=== PATIENT | male | born 1950 | race Caucasian/White ===

== ENCOUNTER 2016-10-07 14:59 | Emergency (ER) | payer OTHER ==
[~2016-10-07] VITALS: Ht 165.1 cm; Wt 68.2 kg
[2016-10-07] MEDS ORDERED: SOD CHLORIDE 0.9% 1,000 ML IV STA (15:09)
[2016-10-07] MEDS ORDERED: HYDROmorphONE 1 MG/ML SYG IV STA (15:09)
[2016-10-07] MEDS ORDERED: ONDANSETRON 4 MG INJ IV STA (15:09)
[2016-10-07 15:42] LABS: ADD UMIC YES; URINE BILIRUBIN (Dip) NEGATIVE (NEGATIVE); URINE BLOOD (Dip) 3+ (NEGATIVE); URINE COLOR LT. YELLOW (YELLOW); URINE GLUCOSE (Dip) NEGATIVE (NEGATIVE); URINE KETONES (Dip) NEGATIVE (NEGATIVE); URINE LEUKOCYTE ESTERASE (Dip) NEGATIVE (NEGATIVE); URINE NITRITE (Dip) NEGATIVE (NEGATIVE); URINE TOTAL PROTEIN (Dip) 1+ (NEGATIVE); URINE UROBILINOGEN (Dip) 0.2 E.U./dL (0.1-1.0)
[2016-10-07 15:49] VITALS: Ht 165.1 cm; Wt 68.2 kg
[2016-10-07 15:55] LABS: BACTERIA,URINE FEW
[2016-10-07 15:56] LABS: BASOPHILS % 0.4 % (0.0-2.0); EOSINOPHILS % 0.3 % (0.0-7.0); HEMATOCRIT 43.7 % (42.0-52.0); LYMPHOCYTES # 2.1 10^3/ul (0.8-2.9); LYMPHOCYTES % 21.6 % (15.0-51.0); MEAN CORPUSCULAR HEMOGLOBIN 31.8 pg (29.0-33.0); MEAN CORPUSCULAR HGB CONC 34.4 g/dl (32.0-37.0); MEAN CORPUSCULAR VOLUME 92.3 fl (82.0-101.0); MONOCYTE # 0.6 10^3/ul (0.3-0.9); MONOCYTES % 6.2 % (0.0-11.0); NEUTROPHIL # 6.8 10^3/ul (1.6-7.5); NEUTROPHILS % 71.5 % (39.0-77.0); PLATELET COUNT 349 10^3/UL (140-440); RED BLOOD COUNT 4.73 10^6/ul (4.70-6.10); RED CELL DISTRIBUTION WIDTH 13.2 % (11.5-14.5); UNCORRECTED WBC 9.5 10^3/ul (4.8-10.8); WHITE BLOOD COUNT 9.5 10^3/ul (4.8-10.8)
[2016-10-07 16:02] LABS: ALBUMIN 4.4 g/dl (3.3-4.9); CHLORIDE 100 mmol/L (97-110)
[2016-10-07 16:03] LABS: POTASSIUM 4.5 mmol/L (3.5-5.1); SODIUM 142 mmol/L (135-144)
[2016-10-07 16:04] LABS: INR 0.92; PARTIAL THROMBOPLASTIN TIME 28.8 Sec (25.0-35.0); PROTIME 12.4 Sec (12.2-14.2)
[2016-10-07 16:05] LABS: ALBUMIN/GLOBULIN RATIO 1.18; ALKALINE PHOSPHATASE 77 IU/L (42-121); ANION GAP 18 (8-16); ASPARTATE AMINO TRANSFERASE 51 IU/L (15-46); BILIRUBIN,INDIRECT 0.1 mg/dl (0-1.1); BILIRUBIN,TOTAL 0.1 mg/dl (0.2-1.3); BLOOD UREA NITROGEN 15 mg/dl (7-20); CARBON DIOXIDE 29 mmol/L (21-31); CREATININE 0.87 mg/dl (0.61-1.24); TOTAL PROTEIN 8.1 g/dl (6.1-8.1)
[2016-10-07 16:06] LABS: ALANINE AMINOTRANSFERASE 54 IU/L (13-69); CALCIUM 9.5 mg/dl (8.4-10.2); GLUCOSE 122 mg/dl (70-220)
[2016-10-07 16:11] LABS: CONDITION 1
[2016-10-07 16:17] LABS: TROPONIN-I < 0.012 ng/ml (0.00-0.12)
[2016-10-07] MEDS ORDERED: DONE5TAB7 PO (16:24)
[2016-10-07] MEDS ORDERED: DIVA-16 PO (16:25)
[2016-10-07] MEDS ORDERED: CARB200T43 PO (16:26)
[2016-10-07] MEDS ORDERED: LEVE500T8 PO (16:27)
[2016-10-07] MEDS ORDERED: DULO30CA47 PO (16:27)
[2016-10-07] MEDS ORDERED: LORAZEPAM 2 MG INJ IV ONE (17:00)
--- NOTE | 2016-10-07 17:54 | RADRPT ---
PROCEDURE: XR Chest. CLINICAL INDICATION: Abdominal pain. TECHNIQUE: Single frontal view. COMPARISON: None. FINDINGS: There is mild atelectasis at the lung bases. The lungs are otherwise clear. The heart size is normal. There is no pleural effusion. There is no pneumothorax. IMPRESSION: 1. Mild atelectasis at the lung bases. 2. Otherwise normal chest x-ray. RPTAT: QQ .Keo Garcia MD, MD Date Time Electronically viewed and signed by .Keo Garcia MD, MD on 10/07/2016 17:54 .R/
--- NOTE | 2016-10-07 18:11 | RADRPT ---
PROCEDURE: CT Brain without contrast. CLINICAL INDICATION: Fall. Abdominal pain. TECHNIQUE: A multiplanar CT of the brain was performed on a CT scanner utilizing axial imaging fro m the skull base through the vertex without IV contrast. The CTDIvol is 45.01 mGy and the DLP is 81 0.25 mGycm. One or more of the following dose reduction techniques were utilized: Automated exposu re control, adjustment of the mA and/or kV according to patient size, use of iterative reconstructio n technique. COMPARISON: None FINDINGS: Evaluation is somewhat limited due to patient motion and image degradation artifact. No evidence of intracranial hemorrhage or abnormal extra-axial fluid collection. Chronic microvascular ischemic changes in the deep white matter with mild prominence of the ventricl es and subarachnoid spaces compatible with age-related atrophy. Physiologic right basal ganglia elías cifications. The posterior fossa contents, brainstem, craniocervical junction, orbits, pituitary axis, paranasal sinuses, mastoid air cells, and calvarium are unremarkable. Postsurgical changes of the globes bilat erally. IMPRESSION: 1. No intracranial hemorrhage or acute intracranial. 2. Early ischemic injury may be occult to CT imaging and diffusion weighted MRI may be considered as clinically warranted. RPTAT:AAJJ Physician Rachel Date Time Electronically viewed and signed by Physician Rachel on 10/07/2016 18:10 ELAINA/
--- NOTE | 2016-10-07 18:55 | RADRPT ---
PROCEDURE: CT of the abdomen and pelvis without contrast CLINICAL INDICATION: Abdominal Pain. TECHNIQUE: Spiral CT images through the abdomen and pelvis without the use of contrast. The admin istered radiation dose is CTDI 7.63 and DLP 440.06. One or more of the following dose reduction etta hniques were used: automated exposure control, adjustment of the mA and/or kV according to patient s ize, or use of iterative reconstruction technique. COMPARISON: None FINDINGS: Lack of oral and intravenous contrast somewhat limits evaluation. Slight dependent atelectasis of the lung bases is seen. No pleural effusion is seen. There is mild cardiomegaly. Coronary artery calcification is seen. The liver, spleen, adrenals, kidneys, and pancreas are unremarkable in appearance. Small probable r ight renal cortical cyst is seen.. There is a right inguinal hernia containing fat and the inferior aspect of the cecum. There is no definite associated bowel obstruction or stranding to suggest isc hemia. Calcifications of the prostate are seen. Small urachal remnant is seen at the urinary bladde r is otherwise unremarkable. The appendix is not identified. No adenopathy or ascites is seen. Th ere is mild degenerative change of the spine. IMPRESSION: Right inguinal hernia containing fat of the cecum without definite evidence of associated bowel obst ruction.. RPTAT: HLBE Physician Mg Date Time Electronically viewed and signed by Physician Mg on 10/07/2016 18:55 LE/
[2016-10-07 19:07] VITALS: BP 152/88; PULSE 88; RESP 18; TEMP 98
[2016-10-07] MEDS ORDERED: HYDR-902 PO (19:14)
--- NOTE | 2016-10-07 19:36 | ERD ---
ER Documentation Chief Complaint Date/Time DATE: 10/07/16 TIME: 19:35 Chief Complaint fall, r hip and shoulder HPI Patient is a 66-year-old male with seizures who presents with a fall. The patient was brought in by ambulance. He had right-sided flank pain and headache after fall. He says that he passed out. He had no pain prior to the fall. He has no fevers, no nausea, vomiting, or diarrhea. He does not know the name of his primary doctor. ROS All systems reviewed and are negative except as per history of present illness. Medications Home Meds Active Scripts Hydrocodone/Acetaminophen (Byers 10-325 Tablet) 1 Each Tablet, 1 TAB PO Q6H Y for PAIN, #7 TAB Prov:INGRID CHAPA MD 10/07/16 Reported Medications Duloxetine Hcl* (Duloxetine Hcl*) 30 Mg Capsule.dr, 30 MG PO DAILY, #30 CAP 10/07/16 Levetiracetam* (Levetiracetam*) 500 Mg Tablet, 500 MG PO BID, TAB 10/07/16 Carbamazepine* (Carbamazepine* XR) 200 Mg Tab.er.12h, 200 MG PO BID, #60 TAB.SA 10/07/16 Divalproex Sodium* (Divalproex Sodium*) 500 Mg Tablet.dr, 500 MG PO Q8, #120 TAB 10/07/16 Donepezil* (Donepezil*) 5 Mg Tablet, 5 MG PO DAILY, #30 TAB 10/07/16 Allergies Allergies: Coded Allergies: No Known Allergy (Unverified , 10/07/16) PMhx/Soc History of Surgery: No Anesthesia Reaction: No Hx Neurological Disorder: Yes (seizures) Hx Respiratory Disorders: No Hx Cardiac Disorders: No Hx Psychiatric Problems: No Hx Miscellaneous Medical Probl: No Hx Alcohol Use: No Hx Substance Use: No Hx Tobacco Use: No Smoking Status: Never smoker FmHx Family History: No diabetes Physical Exam Vitals Vital Signs Date Time Temp Pulse Resp B/P Pulse Ox O2 Delivery O2 Flow Rate FiO2 10/07/16 19:07 98.0 88 18 152/88 94 Room Air 10/07/16 17:00 98.1 95 18 144/98 99 Room Air 10/07/16 15:49 98.0 92 18 138/100 99 Physical Exam Const: Moderate distress secondary to pain Head: Atraumatic Eyes: Normal Conjunctiva ENT: Normal External Ears, Nose and Mouth. Neck: Full range of motion..~ No meningismus. Resp: Clear to auscultation bilaterally Cardio: Regular rate and rhythm, no murmurs Abd: Soft, right lower quadrant tenderness to palpation with right-sided flank pain Skin: No petechiae or rashes Back: No midline or flank tenderness Ext: No cyanosis, or edema Neur: Awake and alert Psych: Normal Mood and Affect Result Diagram: 10/07/16 1527 10/07/16 1527 Results 24 hrs Laboratory Tests Test 10/07/16 15:27 10/07/16 15:30 Activated Partial Thromboplast Time 28.8Sec Alanine Aminotransferase (ALT/SGPT) 54IU/L Albumin 4.4g/dl Albumin/Globulin Ratio 1.18 Alkaline Phosphatase 77IU/L Anion Gap 18 Aspartate Amino Transf (AST/SGOT) 51IU/L Basophils # 0.010^3/ul Basophils % 0.4% Blood Urea Nitrogen 15mg/dl Calcium Level 9.5mg/dl Carbon Dioxide Level 29mmol/L Chloride Level 100mmol/L Creatinine 0.87mg/dl Direct Bilirubin 0.00mg/dl Eosinophils # 0.010^3/ul Eosinophils % 0.3% Globulin 3.70g/dl Glucose Level 122mg/dl Hematocrit 43.7% Hemoglobin 15.0g/dl INR International Normalized Ratio 0.92 Indirect Bilirubin 0.1mg/dl Lipase 144U/L Lymphocytes # 2.110^3/ul Lymphocytes % 21.6% Mean Corpuscular Hemoglobin 31.8pg Mean Corpuscular Hemoglobin Concent 34.4g/dl Mean Corpuscular Volume 92.3fl Mean Platelet Volume 8.0fl Monocytes # 0.610^3/ul Monocytes % 6.2% Neutrophils # 6.810^3/ul Neutrophils % 71.5% Nucleated Red Blood Cells # 0.010^3/ul Nucleated Red Blood Cells % 0.0/100WBC Platelet Count 72590^3/UL Potassium Level 4.5mmol/L Prothrombin Time 12.4Sec Prothrombin Time Ratio 1.0 Red Blood Count 4.7310^6/ul Red Cell Distribution Width 13.2% Sodium Level 142mmol/L Total Bilirubin 0.1mg/dl Total Protein 8.1g/dl Troponin I < 0.012ng/ml White Blood Count 9.510^3/ul Urine Bacteria FEW Urine Bilirubin NEGATIVE Urine Clarity SLIGHTLY CLOUDY Urine Coarse Granular Casts MODERATE Urine Color LT. YELLOW Urine Glucose NEGATIVE% Urine Hemoglobin 3+ Urine Ketones NEGATIVE Urine Leukocyte Esterase NEGATIVE Urine Microscopic RBC 10-25/HPF Urine Microscopic WBC 5-10/HPF Urine Nitrite NEGATIVE Urine Specific [place] >=1.030 Urine Total Protein 1+ Urine Urobilinogen 0.2 E.U./dL Urine pH 6.0 Current Medications Medications (Trade) Dose Ordered Sig/Cathie Route PRN Reason Start Time Stop Time Status Last Admin Dose Admin Sodium Chloride (NS) 1,000 ml @ 1,000 mls/hr Q1H STAT IV 10/07/16 15:09 10/07/16 16:08 DC 10/07/16 15:35 Hydromorphone HCl (Dilaudid) 1 mg ONCE STAT IV 10/07/16 15:09 10/07/16 15:11 DC 10/07/16 15:35 Ondansetron HCl (Zofran Inj) 4 mg ONCE STAT IV 10/07/16 15:09 10/07/16 15:11 DC 10/07/16 15:39 Lorazepam (Ativan) 1 mg ONCE ONCE IV 10/07/16 17:00 10/07/16 17:01 DC 10/07/16 17:32 Procedures/MDM CT head negative for intraconal hemorrhage per radiology. CT abdomen and pelvis negative for traumatic injury per radiology. Patient is a 66-year-old male with seizures who presents with headache and flank pain after fall. He also had a seizure in the ER and was given Ativan. The patient had a full workup including laboratory studies, CT scan of the brain , chest x-ray, and CT scan of the abdomen and pelvis. His workup was basically negative. At this point I believe outpatient management is appropriate. The patient can follow-up with his primary doctor within 24-48 hours can return if symptoms worsen. He should continue to take his antiseizure medicines as directed. Observation Note: Time: 4 hours Family Hx: Negative for diabetes Evaluation: Multiple exams showed improving symptoms and no evidence of clinical decompensation. Departure Diagnosis: Primary Impression: Seizure Additional Impression: Fall Encounter type: initial encounter Qualified Code: W19.XXXA - Fall, initial encounter Condition: Fair Patient Instructions: Fall, Uncertain Cause, Seizure, Recurrent [Adult] Referrals: Your doctor Additional Instructions: Llame al doctor MAANA y marcel jenny ANN MARIE PARA DENTRO DE 1-2 MATA.Dgale a la secretaria que nosotros le instruimos hacer esta ann marie.Avise o llame si arreguin condicin se empeora antes de la ann marie. Regresa aqui si peor o no mejor. INGRID CHAPA MD Oct 07, 2016 19:36
== END 2016-10-07 19:48 | disposition home or self-care (01) ==
LOC: E/R 14:59
DX: S09.90XA Unspecified injury of head, initial encounter (principal); R40.2142 Coma scale, eyes open, spontaneous, at arrival to emergency department; R56.9 Unspecified convulsions; R40.2252 Coma scale, best verbal response, oriented, at arrival to emergency department; R40.2362 Coma scale, best motor response, obeys commands, at arrival to emergency department; R10.9 Unspecified abdominal pain; W19.XXXA Unspecified fall, initial encounter; Y92.9 Unspecified place or not applicable
CPT/HCPCS: 36415; 70450; 71010; 74176; 80053; 81001; 83690; 84484; 85025; 85610; 85730; 93005; 96374; 96375; 99285; J1170; J2060; J2405; J7030; 81003

== ENCOUNTER 2018-03-13 13:43 | Emergency (ER) | END 2018-03-13 17:09 | disposition home or self-care (01) ==